=== PATIENT | female | born 1945 | race Caucasian/White ===

== ENCOUNTER → 2025-03-21 | Outpatient (CLI) | payer MEDICARE, BC, SELFPAY ==
--- NOTE | 2025-03-21 | XR_ITS ---
Examination: PA lateral chest 2 views TECHNIQUE: Upright PA lateral chest 2 views Exam date and time: March 21, 2025 1318 hours COMPARISON: August 26, 2024 INDICATIONS: Coughing beginning 2 weeks ago. FINDINGS: Normal heart size No lobar pneumonia. Prominent osteopenia IMPRESSION: No pneumonia or pulmonary edema
[2025-03-21 14:06] LABS: Lactate (Lactic Acid) 1.7 mMol/L (0.4-2.0)
[2025-03-21 14:09] LABS: Basophils # (Auto) 0.1 Thou/mm3 (0.0-0.2); Basophils % (Auto) 1 % (0-2.5); Eosinophils # (Auto) 0.1 Thou/mm3 (0.0-0.5); Eosinophils % (Auto) 1 % (0-10); Hematocrit 43.6 % (36.0-46.0); Hemoglobin 15.3 g/dL (12.0-16.0); Immature Granulocytes % (Auto) 0 % (0-0); Immature Granulocytes Auto 0.02 Thou/mm3 (0.00-0.00); Lymphocytes # (Auto) 1.5 Thou/mm3 (1.0-4.8); Lymphocytes % (Auto) 20 % (10-50); Mean Corpuscular HGB Conc 35.1 g/dl (31.0-37.0); Mean Corpuscular Hemoglobin 30.1 pg (25.0-35.0); Mean Corpuscular Volume 86 fL (80-100); Monocytes # (Auto) 0.6 Thou/mm3 (0.0-0.8); Monocytes % (Auto) 8 % (0-12); Neutrophils # (Auto) 5.2 Thou/mm3 (1.8-7.7); Neutrophils % (Auto) 70 % (37-80); Nucleated Red Blood Cell % 0 /100 WBC (0); Platelet Count 326 Thou/mm3 (140-440); RDW Standard Deviation 38.6 fL (36.4-46.3); Red Blood Count 5.09 Miln/mm3 (4.00-5.20); White Blood Count 7.4 Thou/mm3 (3.6-11.0)
[2025-03-21 14:21] LABS: Anion Gap 9 (7-16); BUN/Creatinine Ratio 13 Ratio (12-20); Blood Urea Nitrogen 10 mg/dL (9-23); Calcium 9.5 mg/dL (8.3-10.6); Carbon Dioxide 26.8 mMol/L (20.0-31.0); Chloride 101 mMol/L (98-107); Creatinine (Component) 0.8 mg/dL (0.6-1.3); Glucose 112 mg/dL (74-106); Osmolality,Calculated 273 (275-295); Potassium 3.3 mMol/L (3.4-5.1); Sodium 137 mMol/L (136-145); eGFR > 60 See Note
[2025-03-22 12:59] LABS: Cocci Serology, IgM Negative (Negative)
[2025-03-23 12:52] LABS: Cocci Serology, IgG Negative (Negative)
== END | disposition home or self-care (01) ==
LOC: CDIM 12:01 → COPL 13:30
PROVIDERS: PCP Family Medicine; Referring Provider Nurse Practitioner Family; Visit Provider Radiology Diagnostic Radiology
DX: J20.9 Acute bronchitis, unspecified (principal)
CPT/HCPCS: 36415; 71046; 80048; 83605; 85025; 86331; 86635

== ENCOUNTER 2025-10-24 12:57 | Outpatient (RCR) | payer MEDICARE, BC, SELFPAY ==
--- NOTE | 2025-10-24 15:09 | CTCCONSULT_ITS ---
[facility] [address] [place], [place] [address] Consultation Note Date: 10/24/2025 MR#: [id number] Name: ARMOND MENDOZA : 1945 Dx: C50.411 Malignant neoplasm right breast Attending physician. MARLEN CummingsP Referring physician. Osvaldo Holman MD Reason for consultation. Patient with stage IIA pT2pN0 right breast CA status post partial mastectomy sentinel lymph node biopsy referred for radiation oncology consultation. History of Present Illness: Patient is a 80-year-old lady with imaging studies suggested mass in the right breast at approximately 12:00 mid depth BI-RADS 5. 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 Holman 08/18/2025. Tumor size was 28 x 15 x 10 mm with 1 x 1 x 1 size of DCIS nuclear grade 3 all margins negative with reexcision. 3 lymph nodes sentinel and removed were negative for mets. Stage IIA pT2pN0. ER/NM strongly positive HER2 negative Ki-67 35% Oncotype Dx was 17 with 5% recurrence with AI or WU alone. Past Medical History: History of asthma bladder infection bronchitis glaucoma high blood pressure measles mumps tonsillitis valley fever ulcer; has skin sensitivities Meds. 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 chest clear to auscultation heart regular rate and rhythm ABD: Soft no organomegaly or tenderness EXT: No cyanosis clubbing or edema Assessment:1. Patient with stage IIA pT2pN0 right breast CA status post right breast tylectomy sentinel lymph node biopsy tissue arrangement Dr. Osvaldo Holman 08/18/2025. Receptor positive HER2/carolina negative. 2. Oncotype DX 17 with 5% distant recurrence at 10 years unlikely to benefit from chemo, when using estrogen modulator. 3. Will see Dr. Latham, medical oncologist, in a few days. 4. Told patient about the possible benefit of local radiation approximately 3 weeks duration 4000 cGy, considering the moderate size primary, pT2. She is elderly but in general good shape with likely good remaining life expectancy. Patient is concerned about the skin effects as she is sensitive to sunlight. Will discuss with Dr. Latham in a few days. Thank you for allowing me to evaluate this very nice patient. Cc: EDISON Brown Electronically signed by: Isaías Marina MD, ELEONORA 10/24/2025 3:07 PM
--- NOTE | 2025-11-02 14:54 | CTCTXPLN_ITS ---
[facility] [address] [place], [place] [address] Physician Clinical Treatment Planning Note Date of Service: 11/02/2025 Name: ARMOND Delaney.: 1945 The patient has agreed to proceed with Radiation therapy. Tests and supporting medical records were interpreted to assist in defining the tumor location and extent of disease. Further imaging will be necessary to contour and delineate the volume to which the XRT will be provided. A. Treatment Intent: curative B. Modality:mixed C. Requested Technique:3 D D. Treatment Site:R breast E. Critical structures to be contoured on plan: F. In order to accomplish this plan, I am ordering/Prescribing the followin. Simulations (s) will be performed to accomplish a reproducible treatment position, to determine optimal treatment portals/beam arrangements, to design beam modifying devices and verify treatment portals on patient prior to the commencement of Radiation Therapy. 2. Devices; for immobilization and beam shaping:sendwithus 3. CT Guidance for placement of XRT liu Scan area: 4. Portal images Frequency: 5. Invivo transit dose measurement once per week on all VMAT patients. 6. Special Physics Consult Requested for: 7. Other requests: G. Dose Objectives:curative Electronically signed by: Isaías Marina M.D. 11/02/2025 2:52 PM
--- NOTE | 2025-11-02 14:56 | CTCTXPLNST_ITS ---
Radiation Oncology Treatment Planning Sheet Name: ARMOND MENDOZA MR#: [id number] : 1945 Dx: C50.411 Malignant neoplasm of upper-outer quadrant of right female breast Date of Service: 11/02/2025 Account #: ?? Pt Treatment Intent: curative palliative other: Stage: Procedure CPT # Ordered Spec. Procedure 37904 Gould Complex (set-up) 32868 R breast/ E boost 1 Gould Simple 73080 1 IMRT Plan 66998 MLC Devices VMAT 36652 Gould 3 D 52011 1 TRTMT dev Complex 90243 [place]/2F/E boost 4 TRTMT dev simple 39871 1 Basic Krystian 34570 5 Special Dosimetry 30882 Spec Physics 70292 Port Films 94796 3 SRS Cranial/1FX 15468 SBR 5 FX or Less /ex: 5 = 5 fx 37606 IMRT Simple 36091 IMRT Complex 67369 IGRT 53005 Rad del [employer] 6-10 77408 Rad del [employer] 11- 74708 5005 20 Cont Med Physics 00348 4 Treatment Planning 15093 1` Weekly Evaluation 17916 4 Rad del com 20 mev 21100 Special Port Plan 05468 TRTMT dev inter 94469 Isodose Complex 91379 Isodose simple 17690 Resp Motion Mgmt Simulation 59396 Placement of Fiducial Markers 31481 Electronically Signed By: Isaías Marina MD, DABR 11/02/2025 2:54 PM
== END 2025-11-15 23:59 | disposition home or self-care (01) ==
LOC: SCTC 12:57
PROVIDERS: PCP Nurse Practitioner Family; Referring Provider Surgery; Visit Provider Internal Medicine Hematology & Oncology
DX: C50.811 Malignant neoplasm of overlapping sites of right female breast (principal); Z17.0 Estrogen receptor positive status [ER+]; Z17.21 Progesterone receptor positive status; Z17.32 Human epidermal growth factor receptor 2 negative status; Z90.11 Acquired absence of right breast and nipple
CPT/HCPCS: 99213; G0463